=== PATIENT | female | born 1955 | race Caucasian/White ===

== ENCOUNTER 2022-01-05 14:15 | Outpatient (CLI) | payer BC, SELFPAY ==
--- NOTE | 2022-01-05 14:15 | RT.EKG_ITS ---
APPROVED REPORT Exam: Resting ECG Reason for Exam: syncope Patient Location: O HR:78 bpm ECG Measurements Heart Rate 78 AXIS [place] 165 P 95 QRSd 104 QRS 36 QT 423 T 36 QTc 482 Conclusion Sinus rhythm...normal P axis, V-rate 50- 99 Borderline T abnormalities, anterior leads...T flat or neg, V2-V4
== END 2022-01-05 14:16 | disposition home or self-care (01) ==
LOC: DI.CARD 14:17
PROVIDERS: PCP Neuromusculoskeletal Medicine & OMM; Visit Provider Internal Medicine Cardiovascular Disease
DX: R55 Syncope and collapse (principal); R94.31 Abnormal electrocardiogram [ECG] [EKG]
CPT/HCPCS: 93010

== ENCOUNTER 2023-01-04 14:55 | Outpatient (CLI) | payer BC, SELFPAY ==
--- NOTE | 2023-01-04 14:45 | RT.EKG_ITS ---
APPROVED REPORT Exam: Resting ECG Reason for Exam: Long QT syndrome Patient Location: O HR:68 bpm ECG Measurements Heart Rate 68 AXIS NE 180 P 82 QRSd 110 QRS 43 QT 420 T 47 QTc 447 Conclusion Atrial-paced complexes...other complexes also detected IVCD
== END 2023-01-04 14:56 | disposition home or self-care (01) ==
LOC: DI.CARD 14:55
PROVIDERS: PCP Neuromusculoskeletal Medicine & OMM; Visit Provider Internal Medicine Cardiovascular Disease
DX: I45.81 Long QT syndrome (principal); Z95.810 Presence of automatic (implantable) cardiac defibrillator
CPT/HCPCS: 93010

== ENCOUNTER 2024-01-03 14:35 | Outpatient (CLI) | payer BC, SELFPAY ==
--- NOTE | 2024-01-03 14:30 | RT.EKG_ITS ---
APPROVED REPORT Exam: Resting ECG Reason for Exam: EKG Follow up needed Patient Location: O HR:78 bpm ECG Measurements Heart Rate 78 AXIS [place] 167 P 80 QRSd 115 QRS 72 QT 402 T 71 QTc 458 Conclusion Sinus rhythm...normal P axis, V-rate 50- 99 IVCD
== END 2024-01-03 14:36 | disposition home or self-care (01) ==
LOC: DI.CARD 14:35
PROVIDERS: PCP Neuromusculoskeletal Medicine & OMM; Visit Provider Internal Medicine Cardiovascular Disease
DX: I45.81 Long QT syndrome (principal); I10 Essential (primary) hypertension; R94.31 Abnormal electrocardiogram [ECG] [EKG]; I21.4 Non-ST elevation (NSTEMI) myocardial infarction
CPT/HCPCS: 93010

== ENCOUNTER 2025-01-01 14:45 | Outpatient (CLI) | payer BC, SELFPAY ==
--- NOTE | 2025-01-01 14:45 | RT.EKG_ITS ---
APPROVED REPORT Exam: Resting ECG Reason for Exam: loing QT syndrome Patient Location: O HR:70 bpm ECG Measurements Heart Rate 70 AXIS [place] 185 P 52 QRSd 110 QRS 31 QT 411 T 37 QTc 444 Conclusion Sinus rhythm...normal P axis, V-rate 50- 99 Normal Electrocardiogram
== END 2025-01-01 14:46 | disposition home or self-care (01) ==
LOC: DI.CARD 14:46
PROVIDERS: PCP Neuromusculoskeletal Medicine & OMM; Visit Provider Internal Medicine Cardiovascular Disease
DX: I45.81 Long QT syndrome
CPT/HCPCS: 93010